=== PATIENT | male | born 1965 | race Hispanic/Latino ===

== ENCOUNTER 2017-09-18 11:51 | Emergency (ER) | payer OTHER ==
[~2017-09-18 11:51] MED LIST: ACET1TAB12 PO; LEVO500T2 PO; LISI20TA PO; METF500T6 PO; METO50 PO; TAMS-1 PO
[2017-09-18 12:08] LABS: BASOPHILS % (AUTO) 0.3 % (0.0-5.0); EOSINOPHILS % (AUTO) 1.5 % (0.0-8.0); LYMPHOCYTES % (AUTO) 15.3 % (21.0-51.0); MEAN CORPUSCULAR HEMOGLOBIN 31.8 pg (27.0-33.0); MEAN CORPUSCULAR HGB CONC 34.9 g/dL (32.0-36.0); MEAN CORPUSCULAR VOLUME 91.2 fL (79-99); MONOCYTES % (AUTO) 7.6 % (3.0-13.0); NEUTROPHILS % (AUTO) 75.3 % (40.0-77.0); PLATELET COUNT (AUTO) 253 K/uL (130-400); RED BLOOD CELL COUNT(AUTO) 5.48 MIL/uL (4.50-6.20); RED CELL DISTRIBUTION WIDTH 12.9 % (11.0-15.5); WHITE BLOOD COUNT (AUTO) 12.9 K/uL (4.8-10.8)
[2017-09-18] MEDS ORDERED: LIDOCAINE HCL 2% VISCOUS 15 ML UDCUP ONE (12:08)
[2017-09-18] MEDS ORDERED: MAGNESIUM HYDROXIDE 30 ML/UDCUP ONE (12:09)
[2017-09-18 12:19] LABS: CREATININE 0.8 mg/dL (0.5-1.5); POTASSIUM 4.2 mmol/L (3.5-5.1)
[2017-09-18 12:32] LABS: ALBUMIN 3.2 g/dL (3.5-5.0); BILIRUBIN,TOTAL 0.5 mg/dL (0.2-1.0); CREATINE KINASE MB 0.7 ng/mL (0.5-3.6); TOTAL PROTEIN, SERUM 6.6 g/dL (6.0-8.3)
[2017-09-18 12:45] LABS: INR 0.91 (0.85-1.15); PARTIAL THROMBOPLASTIN TIME 26.8 SEC (26.3-35.5); PROTHROMBIN TIME 9.6 SEC (9.6-11.6)
[2017-09-18 13:06] LABS: AMPHET/METH SCREEN,URINE NEGATIVE (NEGATIVE); BARBITURATE SCREEN, URINE NEGATIVE (NEGATIVE); BENZODIAZEPINES SCREEN,URINE NEGATIVE (NEGATIVE); CANNABINOID SCREEN,URINE POSITIVE (NEGATIVE); COCAINE SCREEN,URINE POSITIVE (NEGATIVE); OPIATE SCREEN,URINE NEGATIVE (NEGATIVE); PHENCYCLIDINE SCREEN,URINE NEGATIVE (NEGATIVE)
== END 2017-09-18 13:56 | disposition home or self-care (01) ==
LOC: EDH 11:51
DX: R07.89 Other chest pain (principal); F14.10 Cocaine abuse, uncomplicated
CPT/HCPCS: 36415; 71045; 80053; 80305; 82550; 82553; 83874; 83880; 84484; 85025; 85610; 85730; 93005; 94761

== ENCOUNTER 2021-05-17 09:56 | Inpatient (IN) | payer OTHER ==
[~2021-05-17] VITALS: Ht 172.7 cm; Wt 73.6 kg
[~2021-05-17 09:56] MED LIST changes: +METF-444 PO; -METF500T6 PO
[2021-05-17 10:35] LABS: BASOPHILS % (AUTO) 0.2 % (0.0-5.0); EOSINOPHILS % (AUTO) 0.9 % (0.0-8.0); HEMATOCRIT 47.2 % (42-54); LYMPHOCYTES % (AUTO) 16.2 % (21.0-51.0); MEAN CORPUSCULAR HEMOGLOBIN 27.5 pg (27.0-33.0); MEAN CORPUSCULAR HGB CONC 31.4 g/dL (32.0-36.0); MEAN CORPUSCULAR VOLUME 87.7 fL (79-99); MONOCYTES % (AUTO) 7.8 % (3.0-13.0); NEUTROPHILS % (AUTO) 74.4 % (40.0-77.0); PLATELET COUNT (AUTO) 178 K/uL (130-400); RED BLOOD CELL COUNT(AUTO) 5.38 MIL/uL (4.50-6.20); RED CELL DISTRIBUTION WIDTH 14.4 % (11.0-15.5); WHITE BLOOD COUNT (AUTO) 10.9 K/uL (4.8-10.8)
[2021-05-17 10:52] LABS: ALBUMIN 2.4 g/dL (3.5-5.0); CREATININE 1.1 mg/dL (0.5-1.5); POTASSIUM 4.1 mmol/L (3.5-5.1)
[2021-05-17 10:56] LABS: BILIRUBIN,TOTAL 1.1 mg/dL (0.2-1.0); TOTAL PROTEIN, SERUM 6.7 g/dL (6.0-8.3)
[2021-05-17 11:32] LABS: B-TYPE NATRIURETIC PEPTIDE 1460 pg/mL (0-100)
[2021-05-17] MEDS ORDERED: INSULIN HUMULIN R 100 UNIT/ML 3ML IV ONE (12:00)
[2021-05-17] MEDS ORDERED: FUROSEMIDE 40MG VIAL IV ONE (12:00)
[2021-05-17 13:13] LABS: HEMOGLOBIN A1C 11.2 % (4.0-6.0)
[2021-05-17 13:33] LABS: CHOLESTEROL 120 mg/dL (<200); HDL CHOLESTEROL 25 mg/dL (29-71); LDL DIRECT 81 mg/dL (0-99); TRIGLYCERIDES 101 mg/dL (30-200)
[2021-05-17] MEDS ORDERED: INSULIN HUMULIN R 100 UNIT/ML 3ML ONE (14:35)
[2021-05-17] MEDS ORDERED: FUROSEMIDE 40MG VIAL ONE (14:36)
[2021-05-17] MEDS: DOXYCYCLINE HYCLATE 100 MG TABLET PO SCH ×2 (14:42→21:06)
[2021-05-17] MEDS: CEFEPIME HCL 2 GM VIAL IVP SCH (14:42)
[2021-05-17 16:03] LABS: INFLUENZA TYPE A NEGATIVE FOR TYPE A (NEG); INFLUENZA TYPE B NEGATIVE FOR TYPE B (NEG)
[2021-05-17] MEDS: INSULIN HUMULIN R 100 UNIT/ML 3ML SQ SCH ×3 (17:39→21:06)
[2021-05-17 20:31] LABS: APPEARANCE,URINE Cloudy (CLEAR); BILIRUBIN,URINE Negative (NEGATIVE); COLOR,URINE Yellow (YELLOW); GLUCOSE, URINE (UA) >=1000 mg/dL (NEGATIVE); KETONES,URINE Negative (NEGATIVE); LEUKOCYTE ESTERASE ,URINE Large (NEGATIVE); NITRATE,URINE Negative (NEGATIVE); OCCULT BLOOD,URINE Small (NEGATIVE); PH,URINE 6.5 (5.0-8.0); PROTEIN,URINE POS 2+ mg/dL (NEGATIVE)
[2021-05-17 20:38] LABS: BACTERIA,URINE Few /HPF (None Seen); WBC,URINE 51-100 /HPF (0-1)
[2021-05-17 20:39] LABS: AMORPHOUS SEDIMENT,UR Rare /LPF (None Seen); MUCUS,URINE Few LPF (None Seen); YEAST,URINE BUDDING Moderate /HPF (None Seen)
[2021-05-17] MEDS ORDERED: INSULIN GLARGINE 100 UNITS/ML 10 ML VIAL SQ SCH (21:00)
[2021-05-17] MEDS: FUROSEMIDE 20MG VIAL IV SCH (22:40)
[2021-05-18] MEDS: CEFEPIME HCL 2 GM VIAL IVP SCH ×2 (03:39→12:44)
[2021-05-18 06:43] LABS: ALBUMIN 2.2 g/dL (3.5-5.0); CREATININE 1.1 mg/dL (0.5-1.5); CRP QUANTITATIVE 84.1 mg/L (0.00-9.0); POTASSIUM 3.5 mmol/L (3.5-5.1); TOTAL PROTEIN, SERUM 6.3 g/dL (6.0-8.3)
[2021-05-18] MEDS: INSULIN HUMULIN R 100 UNIT/ML 3ML SQ SCH ×7 (07:27→22:11)
[2021-05-18] MEDS ORDERED: GUAIFENESIN-DM 200/20 MG 10 ML PO PRN (07:30)
[2021-05-18] MEDS ORDERED: IPRATROPIUM 0.5 MG/2.5 ML INH IH PRN (07:30)
[2021-05-18 07:38] LABS: BASOPHILS % (AUTO) 0.3 % (0.0-5.0); HEMATOCRIT 46.2 % (42-54); LYMPHOCYTES % (AUTO) 9.6 % (21.0-51.0); MEAN CORPUSCULAR HEMOGLOBIN 27.5 pg (27.0-33.0); MEAN CORPUSCULAR VOLUME 85.9 fL (79-99); MONOCYTES % (AUTO) 9.1 % (3.0-13.0); NEUTROPHILS % (AUTO) 79.3 % (40.0-77.0); PLATELET COUNT (AUTO) 196 K/uL (130-400); RED BLOOD CELL COUNT(AUTO) 5.38 MIL/uL (4.50-6.20); RED CELL DISTRIBUTION WIDTH 14.3 % (11.0-15.5); WHITE BLOOD COUNT (AUTO) 16.6 K/uL (4.8-10.8)
[2021-05-18] MEDS ORDERED: KCL 20 MEQ ERTAB PO PRN (08:00)
[2021-05-18] MEDS ORDERED: POTASSIUM CHLORIDE 20MEQ/100ML 100 ML IV PRN (08:00)
[2021-05-18] MEDS ORDERED: POTASSIUM CHLORIDE 10% ELIXIR 20 MEQ/15 ML UDCUP PO PRN (08:00)
[2021-05-18] MEDS: INSULIN GLARGINE 100 UNITS/ML 10 ML VIAL SQ SCH ×2 (09:13→22:12)
[2021-05-18] MEDS: FUROSEMIDE 20MG VIAL IV SCH ×2 (09:13→22:12)
[2021-05-18] MEDS: FLUTICASONE PROPIONATE 50MCG/SPRAY 16 GM BOTTLE EN SCH ×2 (09:13→22:11)
[2021-05-18] MEDS: DOXYCYCLINE HYCLATE 100 MG TABLET PO SCH ×2 (09:13→22:11)
[2021-05-18] MEDS: ENOXAPARIN SODIUM 40 MG/0.4 ML SYRINGE SQ SCH (09:13)
[2021-05-18] MEDS ORDERED: NALOXONE HCL 0.4 MG/1 ML ML ONE (09:49)
[2021-05-18] MEDS: DEXAMETHASONE SOD PHOSPHATE 4 MG/ML 1ML VIAL IV SCH (12:44)
[2021-05-18] MEDS: BUDESONIDE 0.5 MG/2 ML INH IH SCH (18:00)
[2021-05-18] MEDS ORDERED: ALBUTEROL INHALER 90MCG/INH IH PRN (19:30)
[2021-05-18 22:56] VITALS: BP 120/43
[2021-05-19] MEDS: CEFEPIME HCL 2 GM VIAL IVP SCH ×2 (01:49→15:06)
[2021-05-19 04:00] VITALS: BP 115/74
[2021-05-19 05:40] LABS: BASOPHILS % (AUTO) 0.1 % (0.0-5.0); HEMATOCRIT 46.6 % (42-54); LYMPHOCYTES % (AUTO) 8.4 % (21.0-51.0); MEAN CORPUSCULAR HEMOGLOBIN 27.5 pg (27.0-33.0); MEAN CORPUSCULAR HGB CONC 31.3 g/dL (32.0-36.0); MEAN CORPUSCULAR VOLUME 87.9 fL (79-99); MONOCYTES % (AUTO) 6.3 % (3.0-13.0); NEUTROPHILS % (AUTO) 84.6 % (40.0-77.0); PLATELET COUNT (AUTO) 221 K/uL (130-400); WHITE BLOOD COUNT (AUTO) 12.6 K/uL (4.8-10.8)
[2021-05-19] MEDS: INSULIN HUMULIN R 100 UNIT/ML 3ML SQ SCH ×6 (05:48→16:36)
[2021-05-19] MEDS: BUDESONIDE 0.5 MG/2 ML INH IH SCH ×2 (06:00→18:00)
[2021-05-19 06:12] LABS: ALBUMIN 2.1 g/dL (3.5-5.0); BILIRUBIN,TOTAL 0.9 mg/dL (0.2-1.0); POTASSIUM 4.3 mmol/L (3.5-5.1); TOTAL PROTEIN, SERUM 6.4 g/dL (6.0-8.3)
[2021-05-19 06:20] LABS: B-TYPE NATRIURETIC PEPTIDE 1040 pg/mL (0-100)
[2021-05-19] MEDS: DOXYCYCLINE HYCLATE 100 MG TABLET PO SCH ×2 (08:50→21:58)
[2021-05-19] MEDS: ENOXAPARIN SODIUM 40 MG/0.4 ML SYRINGE SQ SCH (08:51)
[2021-05-19] MEDS: INSULIN GLARGINE 100 UNITS/ML 10 ML VIAL SQ SCH ×2 (08:54→22:24)
[2021-05-19 09:07] VITALS: BP 115/73
[2021-05-19] MEDS: FLUTICASONE PROPIONATE 50MCG/SPRAY 16 GM BOTTLE EN SCH ×2 (10:06→21:59)
[2021-05-19] MEDS: FUROSEMIDE 20MG VIAL IV SCH ×2 (10:19→22:00)
[2021-05-19 11:32] VITALS: BP 109/73
[2021-05-19] MEDS: DEXAMETHASONE SOD PHOSPHATE 4 MG/ML 1ML VIAL IV SCH (13:17)
[2021-05-19 16:00] VITALS: BP 122/72
[2021-05-19 20:09] VITALS: BP 120/80
[2021-05-19] MEDS ORDERED: DEXTROSE 50%-WATER 50 ML DISP.SYRIN IV PRN (21:30)
[2021-05-19] MEDS ORDERED: GLUCAGON 1MG KIT 1 MG ML IM PRN (21:30)
[2021-05-19] MEDS ORDERED: INSULIN HUMULIN R 100 UNIT/ML 3ML SQ ONE (22:30)
[2021-05-19 23:37] VITALS: BP 121/70
[2021-05-20] VITALS (11 sets, daily range): BP systolic 112–136; BP diastolic 72–89
[2021-05-20] MEDS ORDERED: INSULIN HUMULIN R 100 UNIT/ML 3ML SQ ONE (00:30)
[2021-05-20 00:38] LABS: ABG HCO3 27.8 mmol/L (21.0-28.0); ABG OXYGEN SATURATION 96.3 % (95.0-99.0); ABG PCO2 43 mmHg (35-48)
[2021-05-20 01:05] LABS: ALBUMIN 2.2 g/dL (3.5-5.0); BILIRUBIN,TOTAL 0.4 mg/dL (0.2-1.0); CREATININE 1.4 mg/dL (0.5-1.5); POTASSIUM 3.8 mmol/L (3.5-5.1); TOTAL PROTEIN, SERUM 6.3 g/dL (6.0-8.3)
[2021-05-20] MEDS ORDERED: POTASSIUM CHLORIDE 10MEQ/100ML 10 MEQ/100 ML ML IV SCH ×3 (01:30→07:30)
[2021-05-20] MEDS ORDERED: INSULIN REGULAR, HUMAN 3ML 100 UNIT in 0.9%NACL 100ML 99 ML IV PRN ×2 (01:30)
[2021-05-20] MEDS ORDERED: INSULIN HUMULIN R 100 UNIT/ML 3ML ONE (02:30)
[2021-05-20] MEDS ORDERED: 0.9%NACL 100ML 100 ML ONE (02:30)
[2021-05-20] MEDS: CEFEPIME HCL 2 GM VIAL IVP SCH (02:34)
[2021-05-20 05:43] LABS: BASOPHILS % (AUTO) 0.2 % (0.0-5.0); HEMATOCRIT 42.6 % (42-54); LYMPHOCYTES % (AUTO) 8.4 % (21.0-51.0); MEAN CORPUSCULAR HEMOGLOBIN 28.6 pg (27.0-33.0); MEAN CORPUSCULAR HGB CONC 32.9 g/dL (32.0-36.0); MEAN CORPUSCULAR VOLUME 87.1 fL (79-99); NEUTROPHILS % (AUTO) 81.9 % (40.0-77.0); PLATELET COUNT (AUTO) 259 K/uL (130-400); RED BLOOD CELL COUNT(AUTO) 4.89 MIL/uL (4.50-6.20); WHITE BLOOD COUNT (AUTO) 19.2 K/uL (4.8-10.8)
[2021-05-20] MEDS ORDERED: FUROSEMIDE 20MG VIAL IV SCH (06:00)
[2021-05-20] MEDS ORDERED: DEXTROSE 5 % AND 0.9 % NACL 1,000 ML IV SCH (06:00)
[2021-05-20 06:15] LABS: CREATININE 0.9 mg/dL (0.5-1.5); POTASSIUM 3.3 mmol/L (3.5-5.1)
[2021-05-20] MEDS ORDERED: POTASSIUM CHLORIDE 10MEQ/100ML 100 ML IV SCH (07:00)
[2021-05-20] MEDS ORDERED: INSULIN HUMULIN R 100 UNIT/ML 3ML SQ SCH (07:30)
[2021-05-20] MEDS: INSULIN HUMULIN R 100 UNIT/ML 3ML SQ SCH ×4 (07:30→12:13)
[2021-05-20] MEDS: DOXYCYCLINE HYCLATE 100 MG TABLET PO SCH (07:59)
[2021-05-20] MEDS: ENOXAPARIN SODIUM 40 MG/0.4 ML SYRINGE SQ SCH (08:00)
[2021-05-20] MEDS ORDERED: INSLAN SQ (08:43)
[2021-05-20] MEDS ORDERED: [UNRECOGNIZED DRUG - CODE] MC (08:43)
[2021-05-20] MEDS ORDERED: METF-444 PO (08:43)
[2021-05-20] MEDS ORDERED: DEXA6TAB PO (08:43)
[2021-05-20] MEDS ORDERED: FURO20TA4 PO (08:43)
[2021-05-20] MEDS: INSULIN GLARGINE 100 UNITS/ML 10 ML VIAL SQ SCH (08:53)
[2021-05-20] MEDS: FLUTICASONE PROPIONATE 50MCG/SPRAY 16 GM BOTTLE EN SCH (09:01)
[2021-05-20] MEDS: DEXAMETHASONE SOD PHOSPHATE 4 MG/ML 1ML VIAL IV SCH (13:10)
== END 2021-05-20 13:45 | disposition home or self-care (01) | DRG 177 ==
LOC: EDH 09:56 → EDHIP 14:23 → 4AH 05-18 22:50 → 2AH 05-20 02:00
PROVIDERS: ADMIT Hospitalist; ATTEND Hospitalist
DX: U07.1 COVID-19 (principal); J12.82 Pneumonia due to coronavirus disease 2019; J96.01 Acute respiratory failure with hypoxia; I50.23 Acute on chronic systolic (congestive) heart failure; J12.81 Pneumonia due to SARS-associated coronavirus; N39.0 Urinary tract infection, site not specified; I11.0 Hypertensive heart disease with heart failure; E11.65 Type 2 diabetes mellitus with hyperglycemia; E78.00 Pure hypercholesterolemia, unspecified; K76.0 Fatty (change of) liver, not elsewhere classified; Z87.891 Personal history of nicotine dependence; Z82.3 Family history of stroke; Z83.3 Family history of diabetes mellitus; Z82.0 Family history of epilepsy and other diseases of the nervous system; Z82.49 Family history of ischemic heart disease and other diseases of the circulatory system; Z82.5 Family history of asthma and other chronic lower respiratory diseases
CPT/HCPCS: 36415; 36600; 71045; 71250; 76705; 80048; 80053; 80061; 81001; 82010; 82728; 82803; 82948; 83036; 83615; 83735; 83880; 83930; 84145; 84443; 84484; 85025; 85378; 85651; 86140; 87040; 87071; 87088; 87205; 87486; 87581; 87633; 87635; 87798; 87804; 93005; 93306; 93970; 94760; 99291; G0378; J0692; J1100; J1650; J1815; J1940; J2310; J7042

== ENCOUNTER → 2021-08-05 | Outpatient (CLI) | payer MEDICAID ==
[~2021-08-05] VITALS: Ht 172.7 cm; Wt 68.9 kg
[~2021-08-05] MED LIST changes: -ACET1TAB12 PO; +DEXA6TAB PO; +EMPA10TA PO; +FURO20TA4 PO; +INSLAN SQ; -LEVO500T2 PO; -LISI20TA PO; +METO-408 PO; -METO50 PO; +POTA-79 PO; -TAMS-1 PO; +[UNRECOGNIZED DRUG - CODE] MC
[2021-08-05 12:13] LABS: BASOPHILS % (AUTO) 0.2 % (0.0-5.0); EOSINOPHILS % (AUTO) 0.6 % (0.0-8.0); HEMATOCRIT 51.4 % (42-54); LYMPHOCYTES % (AUTO) 20.9 % (21.0-51.0); MEAN CORPUSCULAR HEMOGLOBIN 27.9 pg (27.0-33.0); MEAN CORPUSCULAR HGB CONC 31.3 g/dL (32.0-36.0); MEAN CORPUSCULAR VOLUME 88.9 fL (79-99); MONOCYTES % (AUTO) 11.4 % (3.0-13.0); NEUTROPHILS % (AUTO) 66.6 % (40.0-77.0); PLATELET COUNT (AUTO) 221 K/uL (130-400); RED BLOOD CELL COUNT(AUTO) 5.78 MIL/uL (4.50-6.20); RED CELL DISTRIBUTION WIDTH 17.7 % (11.0-15.5); WHITE BLOOD COUNT (AUTO) 9.7 K/uL (4.8-10.8)
[2021-08-05 12:25] LABS: CREATININE 1.4 mg/dL (0.5-1.5)
[2021-08-05 12:35] LABS: INR 1.04 (0.85-1.15); PROTHROMBIN TIME 11.3 SEC (9.6-11.6)
[2021-08-05 12:37] LABS: PARTIAL THROMBOPLASTIN TIME 29.1 SEC (26.3-35.5)
[2021-08-05 12:47] LABS: B-TYPE NATRIURETIC PEPTIDE 374 pg/mL (0-100)
[2021-08-05 13:25] LABS: APPEARANCE,URINE Cloudy (CLEAR); BILIRUBIN,URINE Negative (NEGATIVE); COLOR,URINE Yellow (YELLOW); GLUCOSE, URINE (UA) >=1000 mg/dL (NEGATIVE); KETONES,URINE Negative (NEGATIVE); LEUKOCYTE ESTERASE ,URINE Moderate (NEGATIVE); NITRATE,URINE Negative (NEGATIVE); OCCULT BLOOD,URINE Negative (NEGATIVE); PROTEIN,URINE Negative (NEGATIVE); UROBILINOGEN,URINE 0.2 mg/dL (0.2-1.0)
[2021-08-05 13:34] LABS: RBC,URINE 0-1 /HPF (0-1); WBC,URINE 26-50 /HPF (0-1)
[2021-08-05 13:35] LABS: BACTERIA,URINE Moderate /HPF (None Seen); MUCUS,URINE Few LPF (None Seen); SPERM,URINE Moderate /HPF (None Seen)
[2021-08-09 13:04] VITALS: BP 99/60
== END | disposition home or self-care (01) ==
LOC: DAH 10:00 → EDSTATUS 11:00
PROVIDERS: ATTEND Internal Medicine Cardiovascular Disease
DX: Z01.810 Encounter for preprocedural cardiovascular examination (principal); I50.22 Chronic systolic (congestive) heart failure; I25.2 Old myocardial infarction; Z79.01 Long term (current) use of anticoagulants; Z79.899 Other long term (current) drug therapy
CPT/HCPCS: 36415; 71045; 80048; 81001; 83880; 85025; 85610; 85730; 87088; 93005

== ENCOUNTER 2023-12-16 23:15 | Inpatient (IN) | payer MEDICAID ==
[~2023-12-16] VITALS: Ht 172.7 cm; Wt 71.7 kg
[~2023-12-16 23:15] MED LIST changes: -DEXA6TAB PO; +POTA-364 PO; -POTA-79 PO; -[UNRECOGNIZED DRUG - CODE] MC
[2023-12-16 23:37] LABS: BASOPHILS # (AUTO) 0.04 K/uL (0.00-0.20); BASOPHILS % (AUTO) 0.4 % (0.0-5.0); EOSINOPHILS # (AUTO) 0.14 K/uL (0.00-0.70); EOSINOPHILS % (AUTO) 1.4 % (0.0-8.0); HEMATOCRIT 43.2 % (42-54); IMMATURE GRANULOCYTE ABSOLUTE 0.03 K/uL (0-1); LYMPHOCYTES % (AUTO) 20.9 % (21.0-51.0); MEAN CORPUSCULAR HEMOGLOBIN 30.3 pg (27.0-33.0); MEAN CORPUSCULAR HGB CONC 32.9 g/dL (32.0-36.0); MEAN CORPUSCULAR VOLUME 92.3 fL (79-99); MONOCYTES # (AUTO) 0.7 K/uL (0.1-1.0); MONOCYTES % (AUTO) 7.5 % (3.0-13.0); NEUTROPHILS # (AUTO) 6.8 K/uL (1.8-7.7); NEUTROPHILS % (AUTO) 69.5 % (40.0-77.0); PLATELET COUNT (AUTO) 194 K/uL (130-400); RED BLOOD CELL COUNT(AUTO) 4.68 MIL/uL (4.50-6.20); RED CELL DISTRIBUTION WIDTH 14.6 % (11.0-15.5); WHITE BLOOD COUNT (AUTO) 9.7 K/uL (4.8-10.8)
[2023-12-17 00:11] LABS: CREATININE 1.8 mg/dL (0.5-1.3); POTASSIUM 4.4 mmol/L (3.5-5.1)
[2023-12-17 00:29] LABS: B-TYPE NATRIURETIC PEPTIDE 750 pg/mL (0-100)
[2023-12-17 01:18] VITALS: PULSE 99; RESP 17
[2023-12-17] MEDS: IpraTROPium/alBUTERol SULFATE 3 ML SOLUTION IH ONE (01:18)
[2023-12-17] MEDS: cefTRIAXone 1G VIAL IVPB ONE (01:40)
[2023-12-17] MEDS: 0.9%NACL 1000ML 1,000 ML IV ONE (01:40)
[2023-12-17 02:17] LABS: SARS-CoV-2, RNA, NAAT NEGATIVE SARS CoV-2 (NEGATIVE)
[2023-12-17 02:19] LABS: ABG BASE EXCESS -4.6 mmol/L (-2.0-3.0); ABG HCO3 20.1 mmol/L (21.0-28.0); ABG OXYGEN SATURATION 85.5 % (94.0-98.0); ABG PCO2 36 mmHg (35-48); DEVICE COMMENT RR JOSERN; PO2, ARTERIAL BG 51.6 mmHg (83.0-108.0); VENT MODE, BG RA (ROOM AIR)
[2023-12-17 02:25] LABS: INFLUENZA TYPE A Negative For Type A (NEGATIVE); INFLUENZA TYPE B Negative For Type B (NEGATIVE)
[2023-12-17] MEDS ORDERED: guaiFENesin-DM 200/20MG 10ML PO PRN (04:00)
[2023-12-17] MEDS: furoSEMIDE 20MG VIAL IV SCH (04:38)
[2023-12-17] MEDS: HEParin 5,000 UNIT VIAL SQ SCH (04:39)
[2023-12-17] MEDS ORDERED: GLUCAGON 1MG KIT 1 MG ML IM PRN (05:00)
[2023-12-17] MEDS ORDERED: POTASSIUM CHLORIDE 10% ELIXIR 20 MEQ/15 ML UDCUP PO PRN (05:00)
[2023-12-17] MEDS ORDERED: POTASSIUM CHLORIDE 20MEQ/100ML 100 ML IV PRN (05:00)
[2023-12-17] MEDS ORDERED: DEXTROSE 50%-WATER 50 ML DISP.SYRIN IV PRN (05:00)
[2023-12-17 05:15] VITALS: BP 125/86; PULSE 104; RESP 24; TEMP 98.2
[2023-12-17 05:37] LABS: BASOPHILS # (AUTO) 0.03 K/uL (0.00-0.20); BASOPHILS % (AUTO) 0.3 % (0.0-5.0); EOSINOPHILS # (AUTO) 0.19 K/uL (0.00-0.70); EOSINOPHILS % (AUTO) 1.9 % (0.0-8.0); HEMATOCRIT 46.9 % (42-54); IMMATURE GRANULOCYTE ABSOLUTE 0.04 K/uL (0-1); LYMPHOCYTES # (AUTO) 2.3 K/uL (1.0-4.8); LYMPHOCYTES % (AUTO) 23.1 % (21.0-51.0); MEAN CORPUSCULAR HEMOGLOBIN 31.1 pg (27.0-33.0); MEAN CORPUSCULAR HGB CONC 32.6 g/dL (32.0-36.0); MEAN CORPUSCULAR VOLUME 95.3 fL (79-99); MONOCYTES # (AUTO) 0.7 K/uL (0.1-1.0); MONOCYTES % (AUTO) 6.7 % (3.0-13.0); NEUTROPHILS # (AUTO) 6.7 K/uL (1.8-7.7); NEUTROPHILS % (AUTO) 67.6 % (40.0-77.0); PLATELET COUNT (AUTO) 198 K/uL (130-400); RED BLOOD CELL COUNT(AUTO) 4.92 MIL/uL (4.50-6.20); RED CELL DISTRIBUTION WIDTH 14.6 % (11.0-15.5); WHITE BLOOD COUNT (AUTO) 9.9 K/uL (4.8-10.8)
[2023-12-17 05:55] LABS: ALBUMIN 2.7 g/dL (3.5-5.0); BILIRUBIN,TOTAL 0.8 mg/dL (0.2-1.0); CREATININE 1.5 mg/dL (0.5-1.3); MAGNESIUM 1.7 mg/dL (1.80-2.40); POTASSIUM 4.6 mmol/L (3.5-5.1); TOTAL PROTEIN, SERUM 6.3 g/dL (6.0-8.3)
[2023-12-17 06:00] LABS: B-TYPE NATRIURETIC PEPTIDE 598 pg/mL (0-100)
[2023-12-17] MEDS: INSULIN humuLIN R 100 UNIT/ML 3ML SQ SCH (06:07)
[2023-12-17 08:00] VITALS: BP 114/67; PULSE 98; RESP 24; TEMP 98.2
[2023-12-17] MEDS: MAGNESIUM 2GM PREMIX 50ML 50 ML IV PRN (08:48)
[2023-12-17] MEDS: FAMOTIDINE 20MG TAB PO SCH (08:48)
[2023-12-17 11:17] LABS: HEMOGLOBIN A1C 11.6 % (4.0-6.0)
[2023-12-17 12:10] VITALS: BP 119/84; PULSE 97; RESP 24; TEMP 98
[2023-12-17 16:16] VITALS: BP 131/89; PULSE 106; RESP 22; TEMP 98.6
[2023-12-17] MEDS ORDERED: METO25TA6 PO (19:11)
[2023-12-17] MEDS ORDERED: ISOS10TA2 PO (19:11)
[2023-12-17] MEDS ORDERED: ATOR40TA71 PO (19:11)
[2023-12-17] MEDS ORDERED: SPIR25TA6 PO (19:11)
[2023-12-17] MEDS ORDERED: CLOP75TA32 PO (19:11)
[2023-12-17] MEDS ORDERED: METF-446 PO (19:11)
[2023-12-17] MEDS ORDERED: FURO40TA7 PO (19:11)
[2023-12-17] MEDS ORDERED: CARV3.12 PO (19:11)
[2023-12-17] MEDS ORDERED: LISI2.5T13 PO ×2 (19:11)
[2023-12-17 20:00] VITALS: BP 136/87; PULSE 100; RESP 24; TEMP 97.6; O2SAT 97
[2023-12-17] MEDS: INSULIN GLARgine 100 UNITS/ML 10 ML VIAL SQ SCH (21:29)
[2023-12-18] VITALS (10 sets, daily range): BP systolic 107–137; BP diastolic 70–86; PULSE 70–113; RESP 16–24; TEMP 98.1–98.7; O2SAT 97–99
[2023-12-18] MEDS: carVEDIlol 3.125 MG TABLET PO SCH (00:19)
[2023-12-18 00:31] LABS: MAGNESIUM 1.4 mg/dL (1.80-2.40); POTASSIUM 3.7 mmol/L (3.5-5.1)
[2023-12-18] MEDS: KCL 20 MEQ ERTAB PO PRN (00:38)
[2023-12-18] MEDS: cefTRIAXone 1G VIAL IVPB SCH (02:36)
[2023-12-18 04:29] LABS: BASOPHILS # (AUTO) 0.03 K/uL (0.00-0.20); BASOPHILS % (AUTO) 0.2 % (0.0-5.0); EOSINOPHILS # (AUTO) 0.16 K/uL (0.00-0.70); EOSINOPHILS % (AUTO) 1.2 % (0.0-8.0); HEMATOCRIT 44.9 % (42-54); IMMATURE GRANULOCYTE ABSOLUTE 0.07 K/uL (0-1); LYMPHOCYTES # (AUTO) 1.4 K/uL (1.0-4.8); LYMPHOCYTES % (AUTO) 10.4 % (21.0-51.0); MEAN CORPUSCULAR HEMOGLOBIN 30.6 pg (27.0-33.0); MEAN CORPUSCULAR VOLUME 92.8 fL (79-99); MONOCYTES % (AUTO) 7.2 % (3.0-13.0); NEUTROPHILS # (AUTO) 11.1 K/uL (1.8-7.7); NEUTROPHILS % (AUTO) 80.5 % (40.0-77.0); PLATELET COUNT (AUTO) 207 K/uL (130-400); RED BLOOD CELL COUNT(AUTO) 4.84 MIL/uL (4.50-6.20); RED CELL DISTRIBUTION WIDTH 14.6 % (11.0-15.5); WHITE BLOOD COUNT (AUTO) 13.8 K/uL (4.8-10.8)
[2023-12-18 04:39] LABS: CREATININE 1.2 mg/dL (0.5-1.3); MAGNESIUM 1.7 mg/dL (1.80-2.40); PHOSPHORUS 3.2 mg/dL (2.5-4.9); POTASSIUM 3.5 mmol/L (3.5-5.1)
[2023-12-18 05:10] LABS: B-TYPE NATRIURETIC PEPTIDE 656 pg/mL (0-100)
[2023-12-18] MEDS ORDERED: carVEDIlol 3.125 MG TABLET PO SCH (09:00)
[2023-12-18 18:55] LABS: APPEARANCE,URINE CLEAR (CLEAR); BILIRUBIN,URINE NEGATIVE (NEGATIVE); COLOR,URINE LIGHT-YELLOW (YELLOW); GLUCOSE, URINE (UA) 300 mg/dL (NEGATIVE); KETONES,URINE NEGATIVE (NEGATIVE); LEUKOCYTE ESTERASE ,URINE NEGATIVE Leu/uL (NEGATIVE); NITRATE,URINE NEGATIVE (NEGATIVE); OCCULT BLOOD,URINE NEGATIVE (NEGATIVE); PROTEIN,URINE NEGATIVE (NEGATIVE); UROBILINOGEN,URINE 0.2 mg/dL (0.2-1.0)
[2023-12-18 18:57] LABS: ADD UA MICROSCOPIC YES; AMPHET/METH SCREEN,URINE NEGATIVE (NEGATIVE); BARBITURATE SCREEN, URINE NEGATIVE (NEGATIVE); BENZODIAZEPINES SCREEN,URINE NEGATIVE (NEGATIVE); CANNABINOID SCREEN,URINE NEGATIVE (NEGATIVE); COCAINE SCREEN,URINE POSITIVE (NEGATIVE); OPIATE SCREEN,URINE NEGATIVE (NEGATIVE); PHENCYCLIDINE SCREEN,URINE NEGATIVE (NEGATIVE)
[2023-12-18 18:59] LABS: RBC,URINE 0-1 /HPF (0-1); SQUAMOUS EPITHELIAL CELL,UR RARE /HPF (0-2); UNCLASSIFIED CRYSTAL 1 /HPF (None Seen); WBC,URINE 0-1 /HPF (0-1)
[2023-12-19] VITALS (7 sets, daily range): BP systolic 102–124; BP diastolic 71–82; PULSE 72–102; RESP 16–20; TEMP 97.4–98.6; O2SAT 97
[2023-12-19 04:20] LABS: BASOPHILS # (AUTO) 0.04 K/uL (0.00-0.20); BASOPHILS % (AUTO) 0.4 % (0.0-5.0); EOSINOPHILS # (AUTO) 0.27 K/uL (0.00-0.70); HEMATOCRIT 43.4 % (42-54); IMMATURE GRANULOCYTE ABSOLUTE 0.05 K/uL (0-1); LYMPHOCYTES # (AUTO) 1.8 K/uL (1.0-4.8); LYMPHOCYTES % (AUTO) 20.1 % (21.0-51.0); MEAN CORPUSCULAR HEMOGLOBIN 30.6 pg (27.0-33.0); MEAN CORPUSCULAR HGB CONC 32.7 g/dL (32.0-36.0); MEAN CORPUSCULAR VOLUME 93.5 fL (79-99); MONOCYTES # (AUTO) 0.7 K/uL (0.1-1.0); MONOCYTES % (AUTO) 7.7 % (3.0-13.0); NEUTROPHILS # (AUTO) 6.2 K/uL (1.8-7.7); NEUTROPHILS % (AUTO) 68.3 % (40.0-77.0); PLATELET COUNT (AUTO) 204 K/uL (130-400); RED BLOOD CELL COUNT(AUTO) 4.64 MIL/uL (4.50-6.20); RED CELL DISTRIBUTION WIDTH 14.5 % (11.0-15.5); WHITE BLOOD COUNT (AUTO) 9.1 K/uL (4.8-10.8)
[2023-12-19 04:37] LABS: CREATININE 1.4 mg/dL (0.5-1.3); MAGNESIUM 1.7 mg/dL (1.80-2.40)
[2023-12-19 11:48] LABS: HEMATOCRIT 45.3 % (42-54); MEAN CORPUSCULAR HEMOGLOBIN 30.4 pg (27.0-33.0); MEAN CORPUSCULAR HGB CONC 32.5 g/dL (32.0-36.0); MEAN CORPUSCULAR VOLUME 93.6 fL (79-99); RED BLOOD CELL COUNT(AUTO) 4.84 MIL/uL (4.50-6.20); RED CELL DISTRIBUTION WIDTH 14.6 % (11.0-15.5); WHITE BLOOD COUNT (AUTO) 9.7 K/uL (4.8-10.8)
[2023-12-19] MEDS: atorVAStatin 40 MG TABLET PO SCH (20:27)
[2023-12-20] VITALS (7 sets, daily range): BP systolic 91–119; BP diastolic 60–84; PULSE 86–99; RESP 18–21; TEMP 97.7–98.2; O2SAT 96–99
[2023-12-20 05:38] LABS: BASOPHILS # (AUTO) 0.04 K/uL (0.00-0.20); BASOPHILS % (AUTO) 0.4 % (0.0-5.0); EOSINOPHILS % (AUTO) 1.8 % (0.0-8.0); HEMATOCRIT 46.2 % (42-54); IMMATURE GRANULOCYTE ABSOLUTE 0.05 K/uL (0-1); LYMPHOCYTES # (AUTO) 1.6 K/uL (1.0-4.8); LYMPHOCYTES % (AUTO) 14.7 % (21.0-51.0); MEAN CORPUSCULAR HEMOGLOBIN 30.8 pg (27.0-33.0); MEAN CORPUSCULAR HGB CONC 33.1 g/dL (32.0-36.0); MEAN CORPUSCULAR VOLUME 93.1 fL (79-99); MONOCYTES # (AUTO) 0.9 K/uL (0.1-1.0); NEUTROPHILS # (AUTO) 8.1 K/uL (1.8-7.7); NEUTROPHILS % (AUTO) 74.6 % (40.0-77.0); PLATELET COUNT (AUTO) 221 K/uL (130-400); RED BLOOD CELL COUNT(AUTO) 4.96 MIL/uL (4.50-6.20); RED CELL DISTRIBUTION WIDTH 14.3 % (11.0-15.5); WHITE BLOOD COUNT (AUTO) 10.9 K/uL (4.8-10.8)
[2023-12-20 05:49] LABS: CREATININE 1.3 mg/dL (0.5-1.3); POTASSIUM 3.8 mmol/L (3.5-5.1)
[2023-12-20] MEDS: LISINOPRIL 2.5 MG TABLET PO SCH (08:35)
[2023-12-20] MEDS: SPIRONOLACTONE 25 MG TAB PO SCH (08:35)
[2023-12-20] MEDS: metOPROLol sucCINATE 50 MG TAB.SR.24H PO SCH (08:35)
[2023-12-20] MEDS ORDERED: metOPROLol sucCINATE 25 MG TAB.SR.24H PO SCH (09:00)
[2023-12-21] VITALS: BP 106/74; PULSE 62; RESP 18; TEMP 98
[2023-12-21 03:57] LABS: MEAN CORPUSCULAR HEMOGLOBIN 30.8 pg (27.0-33.0); MEAN CORPUSCULAR HGB CONC 32.8 g/dL (32.0-36.0); RED CELL DISTRIBUTION WIDTH 14.2 % (11.0-15.5); WHITE BLOOD COUNT (AUTO) 10.5 K/uL (4.8-10.8)
[2023-12-21 04:00] VITALS: BP 101/67; PULSE 109; RESP 18; TEMP 98.5
[2023-12-21 04:23] LABS: ALBUMIN 2.7 g/dL (3.5-5.0); BILIRUBIN,TOTAL 0.5 mg/dL (0.2-1.0); CREATININE 1.4 mg/dL (0.5-1.3); MAGNESIUM 2.4 mg/dL (1.80-2.40); POTASSIUM 4.3 mmol/L (3.5-5.1); TOTAL PROTEIN, SERUM 6.5 g/dL (6.0-8.3)
[2023-12-21 08:00] VITALS: BP 111/65; PULSE 63; RESP 19; TEMP 98.5; O2SAT 99
[2023-12-21] MEDS: furoSEMIDE 40 MG TABLET PO SCH (08:30)
[2023-12-21] MEDS ORDERED: METO50TA9 PO ×2 (15:36)
[2023-12-21] MEDS ORDERED: SPIR25TA6 PO ×2 (15:36)
[2023-12-21] MEDS ORDERED: NITR0.4T50 SL ×2 (15:38)
[2023-12-21] MEDS ORDERED: CEFD300C3 PO ×2 (15:38)
== END 2023-12-21 17:35 | disposition home or self-care (01) | DRG 194 ==
LOC: EDH 23:15 → EDHIP 23:16 → 4BH 12-17 04:26
PROVIDERS: ADMIT Hospitalist; ATTEND Hospitalist
DX: I13.0 Hypertensive heart and chronic kidney disease with heart failure and stage 1 through stage 4 chronic kidney disease, or unspecified chronic kidney disease (principal); J96.01 Acute respiratory failure with hypoxia; K22.6 Gastro-esophageal laceration-hemorrhage syndrome; I50.23 Acute on chronic systolic (congestive) heart failure; E11.22 Type 2 diabetes mellitus with diabetic chronic kidney disease; N18.31 Chronic kidney disease, stage 3a; Z20.822 Contact with and (suspected) exposure to COVID-19; E11.65 Type 2 diabetes mellitus with hyperglycemia; E78.00 Pure hypercholesterolemia, unspecified; F17.210 Nicotine dependence, cigarettes, uncomplicated; I25.2 Old myocardial infarction; I25.5 Ischemic cardiomyopathy; I34.0 Nonrheumatic mitral (valve) insufficiency; F19.10 Other psychoactive substance abuse, uncomplicated; I45.10 Unspecified right bundle-branch block; J44.9 Chronic obstructive pulmonary disease, unspecified; K29.70 Gastritis, unspecified, without bleeding; Z82.0 Family history of epilepsy and other diseases of the nervous system; Z82.49 Family history of ischemic heart disease and other diseases of the circulatory system; Z83.3 Family history of diabetes mellitus; Z91.148 Patient's other noncompliance with medication regimen for other reason
CPT/HCPCS: 36415; 36600; 71045; 80048; 80053; 80305; 81001; 82140; 82550; 82803; 82948; 83036; 83605; 83735; 83880; 84100; 84132; 84145; 84484; 85025; 85027; 85378; 87040; 87635; 87804; 93005; 93306; 93356; 93970; 94640; G0378; J0696; J1644; J1815; J1940; J3475

== ENCOUNTER 2023-12-29 13:20 | Inpatient (IN) | payer MEDICAID ==
[~2023-12-29] VITALS: Ht 172.7 cm; Wt 74.6 kg
[~2023-12-29 13:20] MED LIST changes: +ATOR40TA71 PO; +CARV3.12 PO; +CEFD300C3 PO; +CLOP75TA32 PO; +FURO40TA7 PO; +ISOS10TA2 PO; +LISI2.5T13 PO; +METF-446 PO; +METO25TA6 PO; +METO50TA9 PO; +NITR0.4T50 SL; +SPIR25TA6 PO
[2023-12-29 14:44] LABS: BASOPHILS # (AUTO) 0.05 K/uL (0.00-0.20); BASOPHILS % (AUTO) 0.4 % (0.0-5.0); EOSINOPHILS # (AUTO) 0.11 K/uL (0.00-0.70); EOSINOPHILS % (AUTO) 0.9 % (0.0-8.0); HEMATOCRIT 51.9 % (42-54); IMMATURE GRANULOCYTE ABSOLUTE 0.06 K/uL (0-1); LYMPHOCYTES # (AUTO) 2.3 K/uL (1.0-4.8); LYMPHOCYTES % (AUTO) 19.3 % (21.0-51.0); MEAN CORPUSCULAR HEMOGLOBIN 29.9 pg (27.0-33.0); MEAN CORPUSCULAR VOLUME 93.5 fL (79-99); MONOCYTES % (AUTO) 7.9 % (3.0-13.0); NEUTROPHILS # (AUTO) 8.6 K/uL (1.8-7.7); PLATELET COUNT (AUTO) 275 K/uL (130-400); RED BLOOD CELL COUNT(AUTO) 5.55 MIL/uL (4.50-6.20); RED CELL DISTRIBUTION WIDTH 14.7 % (11.0-15.5); WHITE BLOOD COUNT (AUTO) 12.2 K/uL (4.8-10.8)
[2023-12-29 15:06] LABS: ALBUMIN 3.2 g/dL (3.5-5.0); BILIRUBIN,TOTAL 1.3 mg/dL (0.2-1.0); CREATININE 1.7 mg/dL (0.5-1.3); POTASSIUM 5.8 mmol/L (3.5-5.1); TOTAL PROTEIN, SERUM 6.7 g/dL (6.0-8.3)
[2023-12-29 15:19] LABS: B-TYPE NATRIURETIC PEPTIDE 2040 pg/mL (0-100)
[2023-12-29] MEDS: furoSEMIDE 40MG VIAL IV ONE (15:33)
[2023-12-29 16:01] LABS: ABG BASE EXCESS -9.3 mmol/L (-2.0-3.0); ABG HCO3 16.1 mmol/L (21.0-28.0); ABG OXYGEN SATURATION 96.2 % (94.0-98.0); ABG PCO2 34 mmHg (35-48); ABG PH 7.295 (7.350-7.450); PO2, ARTERIAL BG 90.7 mmHg (83.0-108.0); VENT MODE, BG 2 L NC (ROOM AIR)
[2023-12-29] MEDS ORDERED: POTASSIUM CHLORIDE 10% ELIXIR 20 MEQ/15 ML UDCUP PO PRN (17:30)
[2023-12-29] MEDS ORDERED: POTASSIUM CHLORIDE 20MEQ/100ML 100 ML IV PRN (17:30)
[2023-12-29] MEDS ORDERED: acetaMINOPHEN 500 MG TABLET PO PRN (17:30)
[2023-12-29 17:49] LABS: INR 1.15 (0.85-1.15); PROTHROMBIN TIME 12.3 SEC (9.6-11.6)
[2023-12-29 17:50] LABS: PARTIAL THROMBOPLASTIN TIME 25.9 SEC (26.3-35.5)
[2023-12-29] MEDS: cefTRIAXone 1G VIAL IVPB SCH (17:57)
[2023-12-29] MEDS: INSULIN humuLIN R 100 UNIT/ML 3ML SQ SCH (18:00)
[2023-12-29 18:01] LABS: APPEARANCE,URINE CLEAR (CLEAR); BILIRUBIN,URINE NEGATIVE (NEGATIVE); COLOR,URINE LIGHT-YELLOW (YELLOW); GLUCOSE, URINE (UA) >=1000 mg/dL (NEGATIVE); KETONES,URINE NEGATIVE (NEGATIVE); LEUKOCYTE ESTERASE ,URINE NEGATIVE Leu/uL (NEGATIVE); NITRATE,URINE NEGATIVE (NEGATIVE); OCCULT BLOOD,URINE NEGATIVE (NEGATIVE); PROTEIN,URINE 10 mg/dL (NEGATIVE); UROBILINOGEN,URINE 0.2 mg/dL (0.2-1.0)
[2023-12-29 18:05] LABS: ADD UA MICROSCOPIC YES
[2023-12-29 18:07] LABS: AMPHET/METH SCREEN,URINE NEGATIVE (NEGATIVE); BARBITURATE SCREEN, URINE NEGATIVE (NEGATIVE); BENZODIAZEPINES SCREEN,URINE NEGATIVE (NEGATIVE); CANNABINOID SCREEN,URINE NEGATIVE (NEGATIVE); COCAINE SCREEN,URINE POSITIVE (NEGATIVE); CREATININE,URINE RANDOM 38.09 mg/dL (30-135); OPIATE SCREEN,URINE NEGATIVE (NEGATIVE); PHENCYCLIDINE SCREEN,URINE NEGATIVE (NEGATIVE)
[2023-12-29 18:11] LABS: THYROID STIMULATING HORMONE 5.93 uIU/mL (0.36-3.74)
[2023-12-29 18:12] LABS: MUCUS,URINE RARE LPF (None Seen); RBC,URINE 0-1 /HPF (0-1); SQUAMOUS EPITHELIAL CELL,UR RARE /HPF (0-2); WBC,URINE 0-1 /HPF (0-1)
[2023-12-29 18:42] LABS: HEMOGLOBIN A1C 11.8 % (4.0-6.0)
[2023-12-29] MEDS: NA ZIRCON CYCLOSIL(LOKELMA 10GM) PO SCH (18:51)
[2023-12-29 19:28] LABS: CARBON DIOXIDE 21 mmol/L (21-32); CHLORIDE 97 mmol/L (101-111); CREATININE 1.8 mg/dL (0.5-1.3); GLOMERULAR FILTR. RATE CALC 43 mL/min (>90); SODIUM SERUM 126 mmol/L (136-145); UREA NITROGEN, BLOOD 36 mg/dL (7-18)
[2023-12-29 19:32] LABS: GLUCOSE,RANDOM 420 mg/dL (70-105)
[2023-12-29] MEDS: FAMOTIDINE 20MG VIAL IV SCH (20:27)
[2023-12-29] MEDS: furoSEMIDE 40MG VIAL IV SCH (20:27)
[2023-12-29] MEDS: INSULIN GLARgine 100 UNITS/ML 10 ML VIAL SQ SCH (20:29)
[2023-12-29 22:30] VITALS: BP 112/82; PULSE 58; RESP 20; TEMP 97.6
[2023-12-30 04:00] VITALS: BP 117/75; PULSE 59; RESP 20; TEMP 97.5
[2023-12-30 06:48] LABS: BASOPHILS # (AUTO) 0.08 K/uL (0.00-0.20); BASOPHILS % (AUTO) 0.6 % (0.0-5.0); EOSINOPHILS # (AUTO) 0.25 K/uL (0.00-0.70); EOSINOPHILS % (AUTO) 1.9 % (0.0-8.0); HEMATOCRIT 48.7 % (42-54); IMMATURE GRANULOCYTE ABSOLUTE 0.05 K/uL (0-1); LYMPHOCYTES # (AUTO) 2.9 K/uL (1.0-4.8); LYMPHOCYTES % (AUTO) 22.6 % (21.0-51.0); MEAN CORPUSCULAR HEMOGLOBIN 30.2 pg (27.0-33.0); MEAN CORPUSCULAR HGB CONC 31.8 g/dL (32.0-36.0); MEAN CORPUSCULAR VOLUME 94.9 fL (79-99); MONOCYTES % (AUTO) 7.8 % (3.0-13.0); NEUTROPHILS # (AUTO) 8.7 K/uL (1.8-7.7); NEUTROPHILS % (AUTO) 66.7 % (40.0-77.0); PLATELET COUNT (AUTO) 257 K/uL (130-400); RED BLOOD CELL COUNT(AUTO) 5.13 MIL/uL (4.50-6.20); RED CELL DISTRIBUTION WIDTH 14.5 % (11.0-15.5)
[2023-12-30 07:06] LABS: CREATININE 1.7 mg/dL (0.5-1.3); POTASSIUM 3.9 mmol/L (3.5-5.1)
[2023-12-30 08:00] VITALS: BP 120/81; PULSE 79; RESP 19; TEMP 98.3
[2023-12-30] MEDS ORDERED: PHARMACY COMMUNICATION MISC PRN (10:00)
[2023-12-30 10:24] LABS: ABG BASE EXCESS -6.5 mmol/L (-2.0-3.0); ABG HCO3 19.7 mmol/L (21.0-28.0); ABG OXYGEN SATURATION 95.7 % (94.0-98.0); ABG PCO2 42 mmHg (35-48); ABG PH 7.293 (7.350-7.450); DEVICE COMMENT LIN RN RR; PO2, ARTERIAL BG 87.6 mmHg (83.0-108.0); VENT MODE, BG 2L NC (ROOM AIR)
[2023-12-30 12:00] VITALS: BP 111/76; PULSE 79; RESP 18; TEMP 98.1
[2023-12-30] MEDS ORDERED: LACE ASSESSMENT (SCORE > 11) MISC SCH (12:00)
[2023-12-30 16:00] VITALS: BP 115/98; PULSE 60; RESP 20; TEMP 97.8
[2023-12-30 19:00] VITALS: BP 121/83; PULSE 85; RESP 28; TEMP 97.5
[2023-12-30] MEDS: isoSORbide DInitRATE 10MG TAB PO SCH (20:04)
[2023-12-30] MEDS: atorVAStatin 40 MG TABLET PO SCH (20:04)
[2023-12-30 20:05] VITALS: O2SAT 94
[2023-12-31] VITALS (7 sets, daily range): BP systolic 116–129; BP diastolic 63–92; PULSE 64–87; RESP 18–26; TEMP 97.7–98.5; O2SAT 93
[2023-12-31 04:17] LABS: BASOPHILS # (AUTO) 0.05 K/uL (0.00-0.20); BASOPHILS % (AUTO) 0.4 % (0.0-5.0); EOSINOPHILS # (AUTO) 0.25 K/uL (0.00-0.70); HEMATOCRIT 43.9 % (42-54); IMMATURE GRANULOCYTE ABSOLUTE 0.05 K/uL (0-1); LYMPHOCYTES # (AUTO) 2.1 K/uL (1.0-4.8); LYMPHOCYTES % (AUTO) 16.8 % (21.0-51.0); MEAN CORPUSCULAR HEMOGLOBIN 30.2 pg (27.0-33.0); MEAN CORPUSCULAR HGB CONC 32.3 g/dL (32.0-36.0); MEAN CORPUSCULAR VOLUME 93.4 fL (79-99); MONOCYTES % (AUTO) 7.6 % (3.0-13.0); NEUTROPHILS # (AUTO) 9.1 K/uL (1.8-7.7); NEUTROPHILS % (AUTO) 72.8 % (40.0-77.0); PLATELET COUNT (AUTO) 240 K/uL (130-400); RED CELL DISTRIBUTION WIDTH 14.6 % (11.0-15.5); WHITE BLOOD COUNT (AUTO) 12.5 K/uL (4.8-10.8)
[2023-12-31 04:42] LABS: ALBUMIN 2.4 g/dL (3.5-5.0); BILIRUBIN,TOTAL 0.7 mg/dL (0.2-1.0); CREATININE 1.7 mg/dL (0.5-1.3); MAGNESIUM 1.7 mg/dL (1.80-2.40); POTASSIUM 4.4 mmol/L (3.5-5.1); TOTAL PROTEIN, SERUM 5.7 g/dL (6.0-8.3)
[2023-12-31] MEDS: MAGNESIUM 2GM PREMIX 50ML 50 ML IV PRN (05:42)
[2023-12-31] MEDS: CLOPIDOGREL 75MG TAB PO SCH (08:45)
[2023-12-31] MEDS: furoSEMIDE 40 MG TABLET PO SCH (08:45)
[2023-12-31] MEDS: carVEDIlol 3.125 MG TABLET PO SCH (11:12)
[2023-12-31] MEDS: INSULIN humuLIN R 100 UNIT/ML 3ML SQ SCH ×2 (12:37→12:39)
[2024-01-01] VITALS: BP 129/86; PULSE 87; RESP 24; TEMP 98.3
[2024-01-01 04:00] VITALS: BP 131/89; PULSE 93; RESP 24; TEMP 98.1
[2024-01-01 04:32] LABS: BASOPHILS # (AUTO) 0.05 K/uL (0.00-0.20); BASOPHILS % (AUTO) 0.4 % (0.0-5.0); EOSINOPHILS # (AUTO) 0.25 K/uL (0.00-0.70); EOSINOPHILS % (AUTO) 2.2 % (0.0-8.0); HEMATOCRIT 48.5 % (42-54); IMMATURE GRANULOCYTE ABSOLUTE 0.05 K/uL (0-1); LYMPHOCYTES # (AUTO) 2.1 K/uL (1.0-4.8); LYMPHOCYTES % (AUTO) 18.1 % (21.0-51.0); MEAN CORPUSCULAR HEMOGLOBIN 30.3 pg (27.0-33.0); MEAN CORPUSCULAR VOLUME 94.7 fL (79-99); MONOCYTES % (AUTO) 8.5 % (3.0-13.0); NEUTROPHILS % (AUTO) 70.4 % (40.0-77.0); PLATELET COUNT (AUTO) 225 K/uL (130-400); RED BLOOD CELL COUNT(AUTO) 5.12 MIL/uL (4.50-6.20); RED CELL DISTRIBUTION WIDTH 14.5 % (11.0-15.5); WHITE BLOOD COUNT (AUTO) 11.4 K/uL (4.8-10.8)
[2024-01-01 04:41] LABS: CREATININE 1.6 mg/dL (0.5-1.3); POTASSIUM 3.6 mmol/L (3.5-5.1)
[2024-01-01] MEDS: KCL 20 MEQ ERTAB PO PRN (05:47)
[2024-01-01 07:05] VITALS: BP 125/83; PULSE 85; RESP 18; TEMP 98.4
[2024-01-01 08:00] VITALS: O2SAT 93
[2024-01-01] MEDS: INSULIN humuLIN R 100 UNIT/ML 3ML SQ SCH (08:16)
[2024-01-01] MEDS: FAMOTIDINE 20MG VIAL IV SCH (08:17)
[2024-01-01 11:05] VITALS: BP 106/69; PULSE 79; RESP 18; TEMP 98.5
[2024-01-01] MEDS ORDERED: CARV3.1262 PO ×2 (12:11)
[2024-01-01] MEDS ORDERED: INSU100I3 SQ ×2 (12:28)
[2024-01-01] MEDS ORDERED: INSU3INS3 SQ ×2 (12:28)
[2024-01-01] MEDS ORDERED: CLOP-31 PO ×2 (12:29)
[2024-01-01] MEDS ORDERED: FURO40TA7 PO ×2 (12:29)
== END 2024-01-01 15:01 | disposition home or self-care (01) | DRG 194 ==
LOC: EDH 13:20 → EDHIP 13:21 → 4AH 22:30
PROVIDERS: ADMIT Internal Medicine; ATTEND Internal Medicine
DX: I13.0 Hypertensive heart and chronic kidney disease with heart failure and stage 1 through stage 4 chronic kidney disease, or unspecified chronic kidney disease (principal); J96.01 Acute respiratory failure with hypoxia; N17.9 Acute kidney failure, unspecified; E11.649 Type 2 diabetes mellitus with hypoglycemia without coma; E11.22 Type 2 diabetes mellitus with diabetic chronic kidney disease; I42.9 Cardiomyopathy, unspecified; D72.829 Elevated white blood cell count, unspecified; N18.30 Chronic kidney disease, stage 3 unspecified; J44.9 Chronic obstructive pulmonary disease, unspecified; I50.43 Acute on chronic combined systolic (congestive) and diastolic (congestive) heart failure; E87.5 Hyperkalemia; F10.239 Alcohol dependence with withdrawal, unspecified; E78.5 Hyperlipidemia, unspecified; F17.210 Nicotine dependence, cigarettes, uncomplicated; F14.90 Cocaine use, unspecified, uncomplicated; F12.90 Cannabis use, unspecified, uncomplicated; I25.10 Atherosclerotic heart disease of native coronary artery without angina pectoris; I45.2 Bifascicular block; Z91.148 Patient's other noncompliance with medication regimen for other reason; Z79.899 Other long term (current) drug therapy
CPT/HCPCS: 36415; 36600; 71045; 76705; 76770; 80048; 80053; 80305; 81001; 82010; 82140; 82550; 82570; 82803; 82948; 83036; 83605; 83735; 83880; 84132; 84145; 84443; 84484; 84540; 85025; 85610; 85730; 86140; 87040; 93005; G0378; J0696; J1815; J1940; J3475; J3490

== ENCOUNTER → 2024-03-13 | Outpatient (CLI) | payer MEDICAID ==
[~2024-03-13] MED LIST changes: -CARV3.12 PO; -CEFD300C3 PO; -FURO20TA4 PO; -INSLAN SQ; +INSU100I3 SQ; +INSU3INS3 SQ; -ISOS10TA2 PO; -LISI2.5T13 PO; -METF-444 PO; -METO-408 PO; -METO25TA6 PO; -METO50TA9 PO; -NITR0.4T50 SL; -POTA-364 PO
[2024-03-13 12:20] LABS: CREATININE 1.3 mg/dL (0.5-1.3); MAGNESIUM 2.3 mg/dL (1.80-2.40); POTASSIUM 4.7 mmol/L (3.5-5.1)
== END | disposition home or self-care (01) ==
LOC: LAB 09:54
PROVIDERS: ATTEND Internal Medicine Cardiovascular Disease
DX: I50.22 Chronic systolic (congestive) heart failure (principal)
CPT/HCPCS: 36415; 80048; 83735; 83880

== ENCOUNTER → 2024-03-25 | Outpatient (CLI) | payer MEDICAID ==
[2024-03-25 12:28] LABS: CREATININE 1.6 mg/dL (0.5-1.3); POTASSIUM 4.8 mmol/L (3.5-5.1)
== END | disposition home or self-care (01) ==
LOC: LAB 10:25
PROVIDERS: ATTEND Internal Medicine Cardiovascular Disease
DX: I50.22 Chronic systolic (congestive) heart failure (principal)
CPT/HCPCS: 36415; 80048; 83880

== ENCOUNTER → 2024-04-22 | Outpatient (CLI) | payer MEDICAID ==
[2024-04-22 12:41] LABS: CREATININE 1.5 mg/dL (0.5-1.3); POTASSIUM 4.7 mmol/L (3.5-5.1)
== END | disposition home or self-care (01) ==
LOC: LAB 10:36
PROVIDERS: ATTEND Internal Medicine Cardiovascular Disease
DX: I50.23 Acute on chronic systolic (congestive) heart failure (principal); N18.30 Chronic kidney disease, stage 3 unspecified
CPT/HCPCS: 36415; 80048; 83735

== ENCOUNTER → 2024-06-04 | Outpatient (CLI) | payer MEDICAID ==
[2024-06-04 12:23] LABS: CREATININE 1.6 mg/dL (0.5-1.3); POTASSIUM 4.9 mmol/L (3.5-5.1)
== END | disposition home or self-care (01) ==
LOC: LAB 10:28
PROVIDERS: ATTEND Internal Medicine Cardiovascular Disease
DX: I50.9 Heart failure, unspecified (principal)
CPT/HCPCS: 36415; 80048